=== PATIENT | male | born 1945 | race Caucasian/White ===

== ENCOUNTER 2017-12-17 08:04 | Day surgery (SDC) | payer MEDICARE ==
[2017-12-17 10:04] VITALS: BMI 24.3
[2017-12-17] MEDS ORDERED: Lidocaine Hydrochloride 5 ML INJ ONE (11:24)
[2017-12-17] MEDS ORDERED: Propofol 10 mg/ml Inj (20 ML) ONE ×2 (11:24→11:54)
[2017-12-17] MEDS ORDERED: Lactated Ringer's 1,000 ML IV ONE (11:47)
[2017-12-17] MEDS ORDERED: Simethicone 40 mg/0.6 ml Liquid (30 ml) ONE (11:49)
[2017-12-17 14:24] VITALS: BP 161/68; PULSE 61; RESP 21; TEMP 96.9; O2SAT 100
== END 2017-12-17 13:45 | disposition home or self-care (01) ==
LOC: C.ENDO 08:04
PROVIDERS: ATTEND Internal Medicine Gastroenterology
DX: Z12.11 Encounter for screening for malignant neoplasm of colon (principal); D12.2 Benign neoplasm of ascending colon; K64.2 Third degree hemorrhoids; K29.50 Unspecified chronic gastritis without bleeding; K21.0 Gastro-esophageal reflux disease with esophagitis; K44.9 Diaphragmatic hernia without obstruction or gangrene; R13.10 Dysphagia, unspecified
CPT/HCPCS: 43239; 45381; 45385; 88305; J2704; J7120